=== PATIENT | female | born 2000 | race American Indian/Alaskan Native ===

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

== ENCOUNTER 2019-07-17 21:49 | Emergency (ER) | payer BC, MEDICAID, OTHER ==
[2019-07-17 22:32] VITALS: BP 131/73; PULSE 125
[2019-07-17] MEDS ORDERED: Amoxicillin/Clavulanate K 875-125 MG Tab PO ONE (23:14)
[2019-07-17] MEDS ORDERED: Ibuprofen 600 MG Tab PO ONE (23:16)
--- NOTE | 2019-07-17 23:18 | EDM.PDOC ---
ED HPI GENERAL MEDICAL PROBLEM - General Chief Complaint: General Stated Complaint: HEAD HURTS, EYES SWALLON, CHILLS Time Seen by Provider: 07/17/19 22:40 Source of Information: Reports: Patient History Limitations: Reports: No Limitations - History of Present Illness INITIAL COMMENTS - FREE TEXT/NARRATIVE: ED with c/o 3 day hx productive cough, green phlegm, sore throat, ear pain , sinus congestion and red puffy eyes with matter. No vomiting or diarrhea. Body aches. Has not taken anything over counter for symptoms. Generalized Pain Score (Numeric/FACES): 6 - Related Data Allergies Allergy/AdvReac Type Severity Reaction Status Date / Time No Known Allergies Allergy Verified 07/17/19 22:28 Home Meds: Home Meds Acetaminophen [Tylenol] 650 mg PO Q4H PRN tablet 10/26/18 [Rx] Ibuprofen [Motrin] 800 mg PO Q8H PRN tablet 10/26/18 [Rx] Past Medical History - Past Health History Medical/Surgical History: Denies Medical/Surgical History HEENT History: Reports: None Cardiovascular History: Reports: None Respiratory History: Reports: Asthma, Other (See Below) Other Respiratory History: asthma when younger, "grew out of it" Gastrointestinal History: Reports: GERD, Other (See Below) Other Gastrointestinal History: during . uses milk to relieve discomfort Genitourinary History: Reports: STD, Other (See Below) Other Genitourinary History: chlamydia in first trimester- negative on 2016 [employer] History: Reports: Musculoskeletal History: Reports: None Neurological History: Reports: None Psychiatric History: Reports: None Endocrine/Metabolic History: Reports: Other (See Below) Other Endocrine/Metabolic History: impaired glucose tolerance during Hematologic History: Reports: None Immunologic History: Reports: None Oncologic (Cancer) History: Reports: None Dermatologic History: Reports: None - Infectious Disease History Infectious Disease History: Reports: None - Past Surgical History Head Surgeries/Procedures: Reports: None Respiratory Surgical History: Reports: None GI Surgical History: Reports: None Female Surgical History: Reports: None Musculoskeletal Surgical History: Reports: Arthroscopic Knee Other Musculoskeletal Surgeries/Procedures:: right knee arthroscopy as outpatient in 2016 Social & Family History - Family History Family Medical History: Noncontributory HEENT: Reports: None Cardiac: Reports: None - Tobacco Use Smoking Status *Q: Never Smoker - Caffeine Use Caffeine Use: Reports: Coffee, Soda - Recreational Drug Use Recreational Drug Use: No ED ROS GENERAL - Review of Systems Review Of Systems: Comprehensive ROS is negative, except as noted in HPI. ED EXAM, GENERAL - Physical Exam Exam: See Below Exam Limited By: No Limitations General Appearance: Moderate Distress, Obese Eye Exam: Bilateral Eye: EOMI, Other (sclera injected, yellow drainage bilateral inner canthus) Ears: Normal External Exam Ear Exam: Bilateral Ear: TM Dull Nose: Clear Rhinorrhea Throat/Mouth: Normal Inspection, No Airway Compromise Head: Atraumatic, Normocephalic, Sinus Tenderness Neck: Normal Inspection Respiratory/Chest: No Respiratory Distress, Lungs Clear, Normal Breath Sounds Cardiovascular: Normal Peripheral Pulses, Regular Rate, Rhythm GI/Abdominal: Normal Bowel Sounds, Soft Extremities: Normal Inspection, Normal Range of Motion Psychiatric: Normal Affect, Normal Mood Skin Exam: Warm, Dry, Intact, Normal Color Course - Vital Signs Last Recorded V/S: Last Vital Signs Temp 99.4 F 07/17/19 22:29 Pulse 125 H 07/17/19 22:29 Resp 18 07/17/19 22:29 BP 131/73 07/17/19 22:29 Pulse Ox 97 07/17/19 22:29 - Orders/Labs/Meds Orders: Active Orders 24 hr Category Date Time Status CULTURE STREP A CONFIRMATION [] Stat Lab 07/17/19 22:20 Results STREP SCRN A RAPID W CULT CONF [] Stat Lab 07/17/19 22:20 Results Meds: Medications Discontinued Medications Generic Name Dose Route Start Last Admin Trade Name Blaze PRN Reason Stop Dose Admin Amoxicillin/Clavulanate Potassium 1 tab 07/17/19 23:14 07/17/19 23:22 Augmentin 875 Mg/125 Mg PO 07/17/19 23:15 1 tab ONETIME ONE Administration Ibuprofen 600 mg 07/17/19 23:16 07/17/19 23:22 Motrin PO 07/17/19 23:17 600 mg ONETIME ONE Administration Departure - Departure Time of Disposition: 23:14 Disposition: Home, Self-Care 01 Condition: Good Clinical Impression: Tonsillitis Otitis Qualifiers: Laterality: left Qualified Code(s): H66.92 - Otitis media, unspecified, left ear URI (upper respiratory infection) Qualifiers: URI type: acute tonsillitis Pharyngitis/tonsillitis etiology: unspecified etiology Qualified Code(s): J03.90 - Acute tonsillitis, unspecified Conjunctivitis Qualifiers: Conjunctivitis type: acute Acute conjunctivitis type: unspecified Laterality: bilateral Qualified Code(s): H10.33 - Unspecified acute conjunctivitis, bilateral - Discharge Information *PRESCRIPTION DRUG MONITORING PROGRAM REVIEWED*: No *COPY OF PRESCRIPTION DRUG MONITORING REPORT IN PATIENT ALIYA: No Instructions: Upper Respiratory Infection, Adult Referrals: PCP,None [Primary Care Provider] - Forms: ED Department Discharge Additional Instructions: augmentin 875/125 one twice daily for 10 days increase fluids humidification alternate tylenol 650mg and ibuprofen 600mg every 4 hours as needed for fever/ discomfort Sepsis Event Note - Evaluation Sepsis Screening Result: No Definite Risk - Focused Exam Vital Signs: Vital Signs Temp Pulse Resp BP Pulse Ox 07/17/19 22:29 99.4 F 125 H 18 131/73 97 Date Exam was Performed: 07/18/19 Time Exam was Performed: 04:43 - My Orders Last 24 Hours: My Active Orders 07/17/19 22:20 CULTURE STREP A CONFIRMATION [RM] Stat STREP SCRN A RAPID W CULT CONF [] Stat - Assessment/Plan Last 24 Hours: My Active Orders 07/17/19 22:20 CULTURE STREP A CONFIRMATION [RM] Stat STREP SCRN A RAPID W CULT CONF [] Stat
== END 2019-07-17 23:24 | disposition home or self-care (01) ==
LOC: DL.ED 21:49
DX: J03.90 Acute tonsillitis, unspecified (principal); H66.92 Otitis media, unspecified, left ear; H10.33 Unspecified acute conjunctivitis, bilateral
CPT/HCPCS: 87081; 87430; 87804; 99283; A9270